=== PATIENT | female | born 1995 | race Caucasian/White ===

== ENCOUNTER 2023-05-13 14:34 | Outpatient (REF) | payer MEDICAID, SELFPAY ==
[2023-05-14 03:57] LABS: CT PCR NOT DETECTED (Not Detect.); NG PCR NOT DETECTED (Not Detect.)
== END 2023-05-13 14:35 | disposition home or self-care (01) ==
LOC: HO.CHCLDS 14:34
PROVIDERS: Visit Provider Advanced Practice Midwife
DX: Z11.3 Encounter for screening for infections with a predominantly sexual mode of transmission (principal)
CPT/HCPCS: 0353U

== ENCOUNTER 2023-08-18 13:26 | Outpatient (REF) | payer MEDICAID, SELFPAY ==
[2023-08-18 14:17] LABS: Hematocrit 38.2 % (37.0-47.0); Hemoglobin 13.1 g/dl (12.0-16.0); Mean Corpuscular HGB Conc 34.3 g/dl (31.0-35.0); Mean Corpuscular Hemoglobin 29.4 pg (27.0-33.0); Mean Corpuscular Volume 85.7 fL (80.0-98.0); Mean Platelet Volume 10.4 fL (9.4-12.3); Platelet Count 233 X10*3/uL (160-400); Red Blood Count 4.46 X10*6/uL (4.20-5.50); Red Cell Distribution Width 13.2 % (11.0-16.0); White Blood Count 5.7 X10*3/uL (4.8-10.8)
== END 2023-08-18 13:27 | disposition home or self-care (01) ==
LOC: HO.LAB 13:26
PROVIDERS: PCP Internal Medicine; Visit Provider Nurse Practitioner Family
DX: K21.9 Gastro-esophageal reflux disease without esophagitis (principal); K62.5 Hemorrhage of anus and rectum; Z80.0 Family history of malignant neoplasm of digestive organs
CPT/HCPCS: 36415; 85027; 99212

== ENCOUNTER 2023-08-18 13:26 | Outpatient (AMB) | payer MEDICAID, SELFPAY ==
--- NOTE | 2023-08-18 13:30 | A.OFFVIS_ITS ---
Intake Vital Signs 08/18/23 13:34 Height 5 ft 5 in Weight 134 lb 7.712 oz BMI 22.4 BP 105/60 Blood Pressure Location Lt brachial Position Sitting Pulse 65 Intake Visit Reasons: Colon cancer screening Intake Note: Patient presents to in office visit today as a new patient for colonoscopy screening. CC: Patient referred by her PCP for colonoscopy screening d/t strong family hx of colon cancer. She reports an episode of dark stool last year but other than that denies having any other GI symptoms or concerns. 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 On her father's side most of all her father's siblings have been diagnosed with colorectal cancer. Mostly when they were older. Her whenever her father was diagnosed with colorectal cancer sometimes between age 50 and 60. Patient reports she had a block stool sometimes last year. No blood seen in the stool. Recent blood work that was done by PCP was normal. Patient reports to have normal stools. Patient denies any unintentional weight loss. FORMERLY [facility], [facility]–1983 Surgical History H/O section Status post surgical removal of both fallopian tubes H/O umbilical hernia repair Family History Father Colon cancer Paternal Uncle Colon cancer Paternal Uncle Colon cancer Paternal Aunt Colon cancer Maternal Grandfather Stomach cancer Social History Alcohol intake: never Patient Tobacco Use Status: Never used Tobacco Review of Systems Const Denies weight gain and Denies weight loss ENT Reports no additional complaints, Denies dysphagia and Denies odynophagia Card Reports no additional complaints Resp Reports no additional complaints GI Denies abdominal pain, Denies belching, Denies melena, Denies bloating, Denies change in bowel habits, Denies dysphagia, Denies excessive flatus, Denies dyspepsia, Denies heartburn, Denies diarrhea, Denies loose stools, Denies nausea, Denies odynophagia and Denies vomiting Musc Reports no additional complaints Neuro Reports no additional complaints Psych Reports no additional complaints Endo Reports no additional complaints Physical Exam Vital Signs: Last Vital Signs Pulse 65 08/18/23 13:34 BP 105/60 08/18/23 13:34 BMI result Body Mass Index 22.4 Const General: healthy appearing, no acute distress and well developed Nutritional Appearance: well nourished Orientation/consciousness: patient oriented x3 Resp Effort & Inspection: normal respiratory effort, able to speak in complete sentences, no tracheal deviation and symmetric chest movement Auscultation: clear to auscultation bilaterally Cardio Rate: regular rate GI Inspection: Yes normal to inspection and No distended Palpation (GI): Soft to palpation, not firm, nontender and No hepatosplenomegaly present Auscultation: normal bowel sounds General: Yes no CVA tenderness Back/Spine/Pelvis Back: no CVA tenderness Skin General skin exam: elasticity normal, turgor normal and dry skin Neuro General: patient oriented x3 Psych Appearance: grossly normal Mental Status: mental status grossly normal Assessment & Plan Assessment & Plan (1) Family history of colorectal cancer: Code(s): Z80.0 - Family history of malignant neoplasm of digestive organs (2) Rectal bleed: Code(s): K62.5 - Hemorrhage of anus and rectum Plan Will check patient's blood work. Patient reports that she had black stool about last year. Couple episodes of blood after bowel movement. Patient denies any rectal pain. Denies any weight loss or ribbon like stools. Patient however does have strong family history of colorectal cancer. Will check stool for Hemoccult. Patient can stool softener if she becomes constipated. Patient was also encouraged to increase fluid intake and activity to promote better bowel motility. She will return in this office in 3 months, sooner on as needed basis. Patient is agreeable to this plan and verbalizes understanding of instructions. She was given the opportunity to ask questions and all questions answered. Thank you for allowing me to participate in her care Orders: Orders Complete Blood Count no Diff Today K21.9 - Gastro-esophageal reflux disease without esophagitis AMB Fecal Immunochemical Test Today Z12.11 - Encounter for screening for malignant neoplasm of colon Coding Level of Care Code New Pt Level 3 (35814) Diagnoses Family history of colorectal cancer Z80.0 Rectal bleed K62.5 Time Spent (min) 40 Comment 30 minutes spent with patient and additional 10 minutes spent reviewing her records
[2023-08-18 13:34] VITALS: BP 105/60; PULSE 65; BMI 22.4
== END 2023-08-18 14:14 | disposition home or self-care (01) ==
PROVIDERS: PCP Internal Medicine; Visit Provider Nurse Practitioner Family
DX: K62.5 Hemorrhage of anus and rectum (principal); Z80.0 Family history of malignant neoplasm of digestive organs
CPT/HCPCS: 99203

== ENCOUNTER 2023-11-17 13:02 | Outpatient (AMB) | payer MEDICAID, SELFPAY ==
--- NOTE | 2023-11-17 13:05 | MHC.OFFVIS ---
Vital Signs 11/17/23 13:06 Height 5 ft 5 in Weight 141 lb 1.533 oz BMI 23.5 BP 120/61 Blood Pressure Location Rt brachial Position Sitting Pulse 80 Pulse Source Pulse Oximeter Intake Visit Reasons: 3 month follow up Intake Note: Pt presents to the office today for a 3 month follow up. Pt states she is feeling well and denies any GI concerns at this time. Allergies No Known Allergies Allergy (Verified 11/17/23 13:07) HPI HPI 3 month follow up: Details: LAST VISIT Family history of colorectal cancer Rectal bleed Plan Will check patient's blood work. Patient reports that she had black stool about last year. Couple episodes of blood after bowel movement. Patient denies any rectal pain. Denies any weight loss or ribbon like stools. Patient however does have strong family history of colorectal cancer. Will check stool for Hemoccult. Patient can stool softener if she becomes constipated. Patient was also encouraged to increase fluid intake and activity to promote better bowel motility. She will return in this office in 3 months, sooner on as needed basis. Patient is agreeable to this plan and verbalizes understanding of instructions. She was given the opportunity to ask questions and all questions answered. ? Thank you for allowing me to participate in her care Orders Orders Complete Blood Count no Diff Today K21.9 AMB Fecal Immunochemical Test Today Z12.11 TODAY'S VISIT Patient is here today for follow-up. Patient had couple episodes of rectal bleed. Occasional constipation. Family history of CRC, patient's that of CRC in his late 50s. Patient denies any melena, unintentional weight loss or ribbon like stools. Denies any issues with anesthesia in the past. No history of sleep apnea. Not on any anticoagulation medication. Denies any cardiac or respiratory symptoms [facility] Surgical History H/O section Status post surgical removal of both fallopian tubes H/O umbilical hernia repair Family History Father Colon cancer Paternal Uncle Colon cancer Paternal Uncle Colon cancer Paternal Aunt Colon cancer Maternal Grandfather Stomach cancer Social History Alcohol intake: never Patient Tobacco Use Status: Never used Tobacco Review of Systems Const Denies weight gain and Denies weight loss ENT Reports no additional complaints, Denies dysphagia and Denies odynophagia Card Reports no additional complaints Resp Reports no additional complaints GI Denies abdominal pain, Denies belching, Denies melena, Denies bloating, Reports hematochezia, Denies change in bowel habits, Denies dysphagia, Denies excessive flatus, Denies dyspepsia, Denies heartburn, Denies diarrhea, Denies loose stools, Denies nausea, Denies odynophagia and Denies vomiting Reports no additional complaints Musc Reports no additional complaints Neuro Reports no additional complaints Psych Reports no additional complaints Endo Reports no additional complaints Physical Exam Vital Signs: Last Vital Signs Pulse 80 11/17/23 13:06 BP 120/61 11/17/23 13:06 BMI result Body Mass Index 23.5 Const General: healthy appearing, no acute distress and well developed Nutritional Appearance: well nourished Orientation/consciousness: patient oriented x3 Resp Effort & Inspection: normal respiratory effort, able to speak in complete sentences, no tracheal deviation and symmetric chest movement Auscultation: clear to auscultation bilaterally Cardio Rate: regular rate GI Inspection: Yes normal to inspection and No distended Palpation (GI): Soft to palpation, not firm, nontender and No hepatosplenomegaly present Auscultation: normal bowel sounds General: Yes no CVA tenderness Back/Spine/Pelvis Back: no CVA tenderness Skin General skin exam: elasticity normal, turgor normal and dry skin Neuro General: patient oriented x3 Psych Appearance: grossly normal Mental Status: mental status grossly normal Assessment & Plan Assessment & Plan (1) Family history of colorectal cancer: Code(s): Z80.0 - Family history of malignant neoplasm of digestive organs (2) Rectal bleed: Code(s): K62.5 - Hemorrhage of anus and rectum (3) Constipation: Code(s): K59.00 - Constipation, unspecified Qualifiers: Constipation type: slow transit constipation Qualified Code(s): K59.01 - Slow transit constipation Plan What to expect before during and after procedure discussed with patient. Stressed the importance of good bowel prep and clear liquid diet day before procedure. Patient denies any issues with anesthesia in the past. No history of sleep apnea. Not on any anticoagulation medication. I will see patient after the procedure, sooner on as needed basis. Patient is agreeable to this plan and verbalizes understanding of instructions. She was given the opportunity to ask questions and all questions answered. Thank you for allowing me to participate in her care Medications: New bisacodyl (Dulcolax (bisacodyl)) take 4 tabs at noon the day before your colonoscopy 20 mg (4 x 5 mg) PO ONCE 1 day 4 tabs 0RF Z12.11 - Encounter for screening for malignant neoplasm of colon polyethylene glycol 3350 (Miralax) As directed by gastroenterology department at [facility] 238 grams PO ONCE 238 grams 0RF Z12.11 - Encounter for screening for malignant neoplasm of colon bisacodyl (Dulcolax (bisacodyl)) 10 mg (2 x 5 mg) PO BEDTIME 60 tabs 4RF
[2023-11-17 13:06] VITALS: BP 120/61; PULSE 80; BMI 23.5
== END 2023-11-17 13:41 | disposition home or self-care (01) ==
LOC: HO.HGI 13:02
PROVIDERS: PCP Internal Medicine; Visit Provider Nurse Practitioner Family
DX: Z80.0 Family history of malignant neoplasm of digestive organs (principal); K62.5 Hemorrhage of anus and rectum; K59.01 Slow transit constipation
CPT/HCPCS: 99213

== ENCOUNTER → 2023-11-17 13:02 | Outpatient (BNVA) | payer MEDICAID, SELFPAY | PROVIDERS: PCP Internal Medicine; Visit Provider Nurse Practitioner Family | DX: K62.5 Hemorrhage of anus and rectum (principal); K59.00 Constipation, unspecified; Z80.0 Family history of malignant neoplasm of digestive organs | CPT/HCPCS: 99212 ==

== ENCOUNTER 2023-12-15 09:21 | Day surgery (SDC) | payer MEDICAID, SELFPAY ==
--- NOTE | 2023-12-12 12:46 | HO.ANESPROP2 ---
Documented by User: Nathaly Sol NP 12/12/23 12:47 HPI - Anesthesia Eval Consult details Narrative: 28yo F for Colonoscopy PMFSH Family History Family History Father Colon cancer Paternal Uncle Colon cancer Paternal Uncle Colon cancer Paternal Aunt Colon cancer Maternal Grandfather Stomach cancer Surgical History Surgical History H/O section Status post surgical removal of both fallopian tubes H/O umbilical hernia repair Social History Social History Alcohol intake: never Patient Tobacco Use Status: Never used Tobacco Substance Use Frequency: Chronic Longstanding Are you DNR?: No Advance Directives: No Advance Directives Information Provided: Yes Patient : No Meds Allergies Allergy/AdvReac Type Severity Reaction Status Date / Time No Known Allergies Allergy Verified 11/17/23 13:07 Home Medications ?Medication ?Instructions ?Recorded ?Confirmed ?Last Taken ?Type mirtazapine 15 mg tablet 15 mg PO BEDTIME 08/18/23 Unknown History Assessment and Plan Assessment Anesthesia Assessment: Chart Reviewed Documented by User: Marco Dennis MD 12/15/23 10:50 PMFSH Family History Family History Father Colon cancer Paternal Uncle Colon cancer Paternal Uncle Colon cancer Paternal Aunt Colon cancer Maternal Grandfather Stomach cancer Family history of problems with anesthesia: No Surgical History Surgical History H/O section Status post surgical removal of both fallopian tubes H/O umbilical hernia repair History of Problems with Anesthesia: No Social History Social History Alcohol intake: never Patient Tobacco Use Status: Never used Tobacco Substance Use Frequency: Chronic Longstanding Are you DNR?: No Advance Directives: No Advance Directives Information Provided: Yes Patient : No Meds Allergies Allergy/AdvReac Type Severity Reaction Status Date / Time No Known Allergies Allergy Verified 11/17/23 13:07 Home Medications ?Medication ?Instructions ?Recorded ?Confirmed ?Last Taken ?Type mirtazapine 15 mg tablet 15 mg PO BEDTIME 08/18/23 Unknown History Exam Airway Mallampati Class: I TM Dist: >3cm Neck ROM: Full Loose/Missing/Broken Teeth: No Heart: rrr Lungs: cta Assessment and Plan Final Anesthetic Review Family History of Problems with Anesthesia: No History of Problems with Anesthesia: No NPO: Yes ASA Class: II Final Preanesthetic Review: No Changes in Pt Med Stat, Meds/Allgs Chart Reviewed, Consent Obtained/Reviewed and Anes Risks/Benef Reviewed Patient Risk: Intermediate Procedure Risk: Intermediate Anesthetic Plan Anesthetic Plan: GA Disposition: Standard PACU
[2023-12-15 10:01] VITALS: BP 118/63; PULSE 78; RESP 19; TEMP 36.8; O2SAT 98; BMI 23.8
[2023-12-15] MEDS: Lactated Ringers 1,000 ML 100 ML IVCONT (10:13)
--- NOTE | 2023-12-15 10:18 | MHC.SHP ---
Pre-Procedural Eval Section A - 24 Hr Update-Section A only Date of Service: 12/15/23 Section B - Complete if H&P > 30 days Chief Complaint: rectal bleed, Details of Present Illness: father with crc Relevant Family History (Specify if Yes): Yes Relevant Social History: None Present Medications: see Short Stay Collaborative assessment Medical History: Significant History (depression ) History of Previous Operations: Relevant previous surgery/procedure and date(s) ( H/O section Status post surgical removal of both fallopian tubes H/O umbilical hernia repair) Allergies: Allergies Allergy/AdvReac Type Severity Reaction Status Date / Time No Known Allergies Allergy Verified 11/17/23 13:07 Review of Systems Sugical H&P ROS: Negative: Constitution, Cardiovascular, Respiratory, Neurological, Psychiatric, Hem-Onc, Allergic/Immunologic, Gastrointestinal, Genitourinary, Musculoskeletal, Integumentary, Endocrine and Eyes/Ears/Nose/Throat Exam Surgical H&P Exam: Normal: HEENT, Normal: Heart, Normal: Lungs, Normal: Extremities, Normal: Abdomen, Normal: Skin and Normal: Neurological Plan Diagnosis/Plan: Unchanged I have reviewed the history and physical and performed a pertinent physical examination on my patient. No changes have occurred unless specified. colonoscopy for rectal bleeding and FH of CRC Time Spent With Patient Time: Total time managing care of this patient today ____ minutes.
--- NOTE | 2023-12-15 10:42 | HO.OPN-COLON ---
Colonoscopy Operative Note Operative Note Date of Service: 12/15/23 Narrative: Operative Information Procedure Description: Colonoscopy Indication: rectal bleeding Anesthesia: MAC COLONOSCOPY Instrument: Olympus variable stiffness pediatric scope 190L Colonoscopy Monitoring: Vital signs and clinical assessment, continuous EKG monitoring, Pulse oximetry, Carbon Dioxide monitoring and blood pressure monitoring were done throughout the procedure. Colon withdrawal time was 8 minutes. Procedure: The patient was placed in the left lateral decubitis position and pre-procedure medications were administered. After a digital rectal examination of the ano-rectum, the video colonoscope was inserted into the rectum and advanced through the colon to the cecum/TI. The colonoscope was slowly withdrawn in a retrograde panoramic fashion and the colon mucosa was carefully examined including a retroflexed view of the rectum. Findings and interventions are described below. Procedure Difficulty: easy Findings: Terminal Ileum-normal Cecum:normal right sided retroflexion- normal Ascending Colon: normal Transverse Colon -normal Descending Colon: 5-6mm sessile polyp removed with cold forceps Sigmoid Colon: normal Rectum: Retroflexion with small internal hemorrhoids seen, grade I Anorectum - normal Intervention: cold forceps polypectomy Colon preparation: [place] Bowel Preparation Scale Right colon; 2 Transverse colon: 3 Left colon; 3 (0 = Unprepared colon segment with mucosa not seen due to solid stool that cannot be cleared. 1 = Portion of mucosa of the colon segment seen, but other areas of the colon segment not well seen due to staining, residual stool and/or opaque liquid. 2 = Minor amount of residual staining, small fragments of stool and/or opaque liquid, but mucosa of colon segment seen well. 3 = Entire mucosa of colon segment seen well with no residual staining, small fragments of stool or opaque liquid) Impression and Post Procedure Diagnosis: colon polyp internal hemorrhoids Plan: High fiber diet leaflet Avoid straining at stool, epsom salts and sitz bath, anusol supps or cream Repeat Colonoscopy in 5 years due to polyp and FH of CRC or earlier if clinically indicated Above findings were reviewed with the patient and relevant handouts were provided if indicated.
[2023-12-15 11:13] VITALS: BP 92/47; PULSE 61; RESP 17; TEMP 36.2; O2SAT 99
[2023-12-15 11:28] VITALS: BP 114/68; PULSE 65; RESP 16; TEMP 36.1; O2SAT 99
== END 2023-12-15 13:15 | disposition home or self-care (01) ==
PROVIDERS: PCP Internal Medicine; Visit Provider Internal Medicine Gastroenterology
PROC: 0DJD8ZZ Inspection of Lower Intestinal Tract, Via Natural or Artificial Opening Endoscopic (ICD-10-PCS; CPT 45378; principal; 2023-12-15 11:30)
DX: K62.5 Hemorrhage of anus and rectum (principal); K59.01 Slow transit constipation; D12.4 Benign neoplasm of descending colon; K64.0 First degree hemorrhoids; Z80.0 Family history of malignant neoplasm of digestive organs
CPT/HCPCS: 45380; 88305; J2250; J2704; J3010

== ENCOUNTER → 2023-12-15 09:21 | Outpatient (BNV) | payer MEDICAID, SELFPAY | PROVIDERS: PCP Internal Medicine; Visit Provider Internal Medicine Gastroenterology | DX: K62.5 Hemorrhage of anus and rectum (principal); D12.4 Benign neoplasm of descending colon; K64.0 First degree hemorrhoids | CPT/HCPCS: 45380 ==

== ENCOUNTER 2024-04-05 10:43 | Outpatient (REF) | payer MEDICAID, SELFPAY ==
[2024-04-05 11:29] LABS: MANUAL DIFF FLAG NO
[2024-04-05 11:47] LABS: Basophils Percent Auto 0.3 % (0-2); Eosinophils Absolute Auto 0.1 X10*3/uL (0.0-0.4); Eosinophils Percent Auto 0.8 % (0-4); Hematocrit 38.1 % (37.0-47.0); Hemoglobin 13.1 g/dl (12.0-16.0); Imm Gran Abs Auto 0.01 X10*3/uL (0.00-0.03); Imm Gran Pct Auto 0.2 % (0.0-0.4); Lymphocytes Absolute Auto 1.1 X10*3/uL (1.2-4.9); Lymphocytes Percent Auto 18.8 % (20-40); Mean Corpuscular HGB Conc 34.4 g/dl (31.0-35.0); Mean Corpuscular Hemoglobin 28.9 pg (27.0-33.0); Mean Corpuscular Volume 84.1 fL (80.0-98.0); Mean Platelet Volume 10.3 fL (9.4-12.3); Monocytes Absolute Auto 0.4 X10*3/uL (0.1-1.2); Monocytes Percent Auto 6.3 % (2-11); Neutrophils Absolute Auto 4.4 x10*3/uL (2.0-8.3); Neutrophils Percent Auto 73.6 % (45-73); Platelet Count 285 X10*3/uL (160-400); Red Blood Count 4.53 X10*6/uL (4.20-5.50); Red Cell Distribution Width 12.9 % (11.0-16.0); White Blood Count 5.9 X10*3/uL (4.8-10.8)
[2024-04-05 12:49] LABS: Alanine Aminotransferase 9 U/L (0-31); Albumin Level 4.2 g/dL (3.5-5.0); Alkaline Phosphatase 58 U/L (39-117); Anion Gap 11 (12-20); Aspartate Amino Transferase 14 U/L (5-31); Bilirubin Total 0.4 mg/dL (0.0-1.0); Blood Urea Nitrogen 16 mg/dL (9-16); Calcium 9.2 mg/dL (8.4-10.2); Carbon Dioxide 22 mmol/L (22-29); Chloride 112 mmol/L (96-108); Estimated Glomerular Filt Rate > 60; Ferritin 53 ng/mL (10-122); Glucose Random 87 mg/dL (60-115); Potassium 3.8 mmol/L (3.3-5.1); Sodium 141 mmol/L (135-145); TSH reflex Free T4 1.28 uIU/mL (0.32-4.0); Total Protein 7.7 g/dL (6.5-8.0); Vitamin D 25-OH Total 35.3 ng/mL (>30)
[2024-04-05 12:52] LABS: Folate 6.4 ng/mL (> or = 4.0); Vitamin B12 363 pg/mL (200-900)
== END 2024-04-05 10:44 | disposition home or self-care (01) ==
LOC: HO.HHCL 10:43
PROVIDERS: Visit Provider Internal Medicine
DX: F33.0 Major depressive disorder, recurrent, mild (principal); F31.4 Bipolar disorder, current episode depressed, severe, without psychotic features
CPT/HCPCS: 36415; 80053; 82306; 82607; 82728; 82746; 84443; 85025

== ENCOUNTER 2024-04-20 12:32 | Outpatient (REF) | payer MEDICAID, SELFPAY ==
--- NOTE | ~2024-04-20 | XR_ITS ---
EXAMINATION: XR ANKLE, RIGHT CLINICAL INFORMATION: Right ankle sprain, trauma 4 days ago. COMPARISON: None available. TECHNIQUE: AP, lateral, and mortise views of the right ankle. FINDINGS: Soft tissue swelling at the ankle. No fracture or malalignment. Bone mineralization is normal. Ankle mortise is symmetric. Normal bone mineralization. Joint spaces appear well-preserved. XR/XR ankle RT min 3V IMPRESSION: Soft tissue swelling at the ankle. No acute fracture or malalignment. Electronically signed by: Manjit Anglin MD 04/20/2024 01:45 PM EDT
== END 2024-04-20 12:33 | disposition home or self-care (01) ==
LOC: HO.HHCX 12:32
PROVIDERS: Visit Provider Internal Medicine
DX: S93.431A Sprain of tibiofibular ligament of right ankle, initial encounter (principal)
CPT/HCPCS: 73610

== ENCOUNTER 2024-05-18 17:59 | Outpatient (REF) | payer MEDICAID, SELFPAY ==
[2024-05-19 13:54] LABS: Bacterial Vaginosis PCR POSITIVE (Negative); Candida Group PCR NOT DETECTED (Not Detect); Candida glab krusei PCR NOT DETECTED (Not Detect); Trichomonas vaginalis PCR NOT DETECTED (Not Detect)
== END 2024-05-18 18:00 | disposition home or self-care (01) ==
LOC: HO.HHCLNP 17:59
PROVIDERS: Visit Provider Advanced Practice Midwife
DX: N89.8 Other specified noninflammatory disorders of vagina (principal)
CPT/HCPCS: 0352U

== ENCOUNTER 2025-05-25 09:07 | Outpatient (REF) | payer MEDICAID, SELFPAY ==
--- OUTSIDE RECORDS SUMMARY | 2025-05-25 14:30 | XMS_ITS | Encounter Summary ---
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 Role Phone Linda Carmichael MD Primary Care Provider + Reason for Visit * Reason Comments pap Encounter Details Date Type Department Care Team (Latest Contact Info) Description 05/25/2025 2:30 PM EDT Procedure Visit [facility] [address] [place] [id number] Maggie Crow CNM [address] [place] [address] Cervical cancer screening (Primary Dx); Dysmenorrhea Social History Tobacco Use Types Packs/Day Years Used Date Smoking Tobacco: Former Passive Smoke Exposure: Past Smokeless Tobacco: Never Tobacco Cessation:Counseling Given: Not Answered Alcohol Use Standard Drinks/Week Comments Never 0 (1 standard drink = 0.6 oz pur e alcohol) Depression Answer Date Recorded Patient Health Questionnaire-9 Score 15 03/07/2025 Patient Health Questionnaire-9 Score 15 03/07/2025 Last PHQ-9: Questionnaire Data Not on file 0 03/07/2025 Housing Stability Answer Date Recorded What is your housing situation today? I have dalton martinez 02/23/[address] you li ve. Do you have problems with any of the following? None of the above 02/23/2025 Food Insecurity Answer Date Recorded Within the past 12 months, y ou worried that your food would run out before you got money to buy more: Never True 02/23/2025 Within the past 12 months,th e food you bought just didn't last and you didn't have enough money to get more: Never True Transportation Answer Date Recorded In the past 12 months, has l ack of transportation kept you from medical appts, meetings, work or from getting things needed for daily living? No 02/23/2025 Utilities Answer Date Recorded In the past 12 months, has t he electric, gas, oil or water company threatened to shut off services in your home? No 02/23/2025 Depression Answer Date Recorded Patient Health Questionnaire-2 Score 4 03/07/2025 Internet Access Answer Date Recorded Internet Access Q1 Yes 02/23/2025 Internet Access Q2 Not on file 02/23/2025 Comments No Intention Date Recorded No desire to become (finding) 1 Sex and Gender Information Value Date Recorded Sex Assigned at Female 05/27/2022 10:34 AM EDT Legal Sex Female 10:34 AM EDT Gender Identity Female 05/27/2022 10:34 AM EDT Sexual Orientation Straight 05/27/2022 10 :34 AM EDT documented as of this encounter Last Filed Vital Signs Vital Sign Reading Time Taken Comments Blood Pressure 110/54 05/25/2025 2:53 PM EDT Pulse 75 05/25/2025 2:53 PM EDT Temperature 36.3 C (97.4 F) 05/25/2025 2:53 PM EDT Respiratory Rate 14 05/25/2025 2:53 PM EDT Oxygen Saturation 98% 05/25/2025 2:53 PM EDT Inhaled Oxygen Concentration - - Weight 65 kg (143 lb 3.2 oz) 05/25/2025 2:53 PM EDT Height - - Body Mass Index 23.65 03/07/2025 12:05 PM EDT documented in this encounter Progress Notes * Maggie Crow CNM - 05/25/2025 2:30 PM EDT Subjective Patient ID: Ramses Juarez is a 29 y.o. female who presents for pap Pap NIL 04/2022. Due for co-testing. Rx'd progestin only pill previously for treatment of dysmenorrhea, pelvic congestion syndrome. She has been taking as directed and notes improvement in menses. Would like to continue. Monthly menses x 4-5d, no heavy flow or bothersome cramping. Referred for pelvic floor PT to [facility] after last visit. She was seen there, advised to do Kegels. Feels this has been somewhat helpful. Denies sexual health concerns today. History of ectopic after tubal ligation with subsequent bilateral salpingectomy. Breast exam deferred today. Review of Systems Genitourinary: Negative for dyspareunia, dysuria, frequency, genital sores, hematuria, menstrual problem, pelvic pain, urgency, vaginal bleeding, vaginal discharge and vaginal pain. No abnormal pap, no abnormal bleeding, no breast pain, no breast mass, no nipple discharge Objective BP 110/54 (BP Location: Left arm, Patient Position: Sitting, BP Cuff Size: Child) Pulse 75 Temp97.4 ??F (36.3 ??C) (Oral) Resp 14 Wt 143 lb 3.2 oz (65 kg) LMP 05/25/2025 SpO2 98% BMI 23.65 kg/m?? 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 Constitutional: Appearance: Normal appearance. Genitourinary: General: Normal vulva. Labia: Right: No rash, tenderness, lesion or injury. Left: No rash, tenderness, lesion or injury. Vagina: Normal. No signs of injury and foreign body. No vaginal discharge, erythema, tenderness, bleeding or lesions. Cervix: No cervical motion tenderness, discharge, friability, lesion, erythema, cervical bleeding or eversion. Uterus: Normal. Not enlarged and not tender. Adnexa: Right adnexa normal and left adnexa normal. Right: No mass, tenderness or fullness. Left: No mass, tenderness or fullness. Comments: Good tone with Kegels, no prolapse with Valsalva. No tenderness of adductors, no vulvodynia, no tenderness of pelvic floor muscles. Able to do diaphragmatic breathing. Neurological: Mental Status: She is alert. Psychiatric: Mood and Affect: Mood normal. Behavior: Behavior normal. Assessment/Plan Diagnoses and all orders for this visit: Cervical cancer screening - Pap Smear Cotest 5 y if normal. Will contact with results. Reviewed Kegels. As they seem to be helpful, advised to continue. Let me know if further concerns. Dysmenorrhea Well controlled on progestin only pill. Will continue for now. Report if symptoms recur. Other orders - norethindrone (Ortho Micronor) 0.35 MG tablet; Take 1 tablet (0.35 mg) by mouth Once per day. documented in this encounter Plan of Treatment Scheduled Orders Name Type Priority Associated Diagnoses Orde r Schedule Pap Smear Pathology and Cytology Routine Cervical cancer screening Ordered: 05/25/2025 documented as of this encounter Visit Diagnoses Diagnosis Cervical cancer screening- Primary Screening for malignant neoplasm of the cervix Dysmenorrhea documented in this encounter Additional Health Concerns Assessment Noted Time PHQ-9 Depression Total Score: 15 025 12:11 PM EDT documented as of this encounter Care Teams Farmworker Machine Relationship Specialty Start Date End Date Linda Carmichael MD [address] [place] [address] PCP - General Family Medicine 07/07/18 documented as of this encounter
--- OUTSIDE RECORDS SUMMARY | 2025-05-26 10:16 | XMS_ITS | Encounter Summary ---
Author Organization [email or web address] Address [address] [facility] [address] [place] [address] Care Team Providers Care Regulatory Specialist Name Role Phone Linda Carmichael MD Primary Care Provider + Reason for Visit * Reason Onset Date Comments Med Refill 03/09/2025 Encounter Details Date Type Department Care Team (Late st Contact Info) Description 03/09/2025 Refill [facility] [address] [place] [address] Maggie Crow CN [address] [place] [address] Social History Tobacco Use Types Packs/Day Years Used Date Smoking Tobacco: Former Passive Smoke Exposure: Past Smokeless Tobacco: Never Alcohol Use Standard Drinks/Week Comments Never 0 (1 standard drink = 0.6 oz pur e alcohol) Depression Answer Date Recorded Patient Health Questionnaire-9 Score 15 03/07/2025 Patient Health Questionnaire-9 Score 15 03/07/2025 Last PHQ-9: Questionnaire Data Not on file 0 03/07/2025 Housing Stability Answer Date Recorded What is your housing situation today? I have dalton michelle 02/23/[address] you li [...] Q2 Not on file 02/23/2025 Comments No Sex and Gender Information Value Date Recorded Sex Assigned at Female 05/27/2022 10:34 AM EDT Legal Sex Female 10:34 AM EDT Gender Identity Female 05/27/2022 10:34 AM EDT Sexual Orientation Straight 05/27/2022 10 :34 AM EDT documented as of this encounter Plan of Treatment Not on file documented as of this encounter Visit Diagnoses Not on filedocumented in this encounter Additional Health Concerns Assessment Noted Time PHQ-9 Depression Total Score: 15 025 12:11 PM EDT documented as of this encounter Care Teams Regulatory Specialist Relationship Specialty Start Date End Date Linda Carmichael MD [address] [place] [phone] PCP - General Family Medicine 07/07/18 documented as of this encounter
--- OUTSIDE RECORDS SUMMARY | 2025-05-26 10:16 | XMS_ITS | Encounter Summary ---
Author Organization [employer] Address [address] [facility] [facility] [address] [facility] [address] [place] [address] Care Team Providers Care Hand Splitter Name Role Phone Linda Carmichael MD Primary Care Provider + Encounter Details Date Type Department Care Team ([facility] st Contact Info) Description 04/28/2023 Orders Only [facility] [address] [place] [address] Nikky Bran LPN Social History Tobacco Use Types Packs/Day Years Used Date Smoking Tobacco: Every Day Cigarettes Passive Smoke Exposure: Current Smokeless Tobacco: Never Comments Unknown Sex and Gender Information Value Date Recorded Sex Assigned at Female 05/27/2022 10:34 AM EDT Legal Sex Female 10:34 AM EDT Gender Identity Female 05/27/2022 10:34 AM EDT Sexual Orientation Straight 05/27/2022 10 :34 AM EDT documented as of this encounter Plan of Treatment Not on file documented as of this encounter Visit Diagnoses Not on filedocumented in this encounter Care Teams Hand Splitter Relationship Specialty Start Date End Date Linda Carmichael MD [address] [place] [phone] PCP - General Family Medicine 07/07/18 documented as of this encounter
--- OUTSIDE RECORDS SUMMARY | 2025-05-26 10:16 | XMS_ITS | Encounter Summary ---
Author Organization [employer] Address [address] [facility] [address] [place] [address] Care Team Providers Care Property Technician Name Role Phone Linda Carmichael MD Primary Care Provider + Reason for Visit * Reason Comments Med Refill Encounter Details Date Type Department Care Team (Late st Contact Info) Description 09/07/2024 Refill [facility] [address] [place], [place] [phone] Linda Carmichael MD [address] [place], [place] [phone] Social History Tobacco Use Types Packs/Day Years Used Date Smoking Tobacco: Former Passive Smoke Exposure: Current Smokeless Tobacco: Never Alcohol Use Standard Drinks/Week Comments Never 0 (1 standard drink = 0.6 oz pur e alcohol) Depression Answer Date Recorded Patient Health Questionnaire-9 Score 24 02/26/2024 Patient Health Questionnaire-9 Score 24 02/26/2024 Last PHQ-9: Questionnaire Data Not on file 0 02/26/2024 Housing Stability Answer Date Recorded What is your housing situation today? I have dalton martinez 07/09/[address] you li ve. Do you have problems with any of the following? None of the above 07/09/2023 Food Insecurity Answer Date Recorded Within the past 12 months, y ou worried that your food would run out before you got money to buy more: Never True 07/09/2023 Within the past 12 months,th e food you bought just didn't last and you didn't have enough money to get more: Never True Transportation Answer Date Recorded In the past 12 months, has l ack of transportation kept you from medical appts, meetings, work or from getting things needed for daily living? No 07/09/2023 Utilities Answer Date Recorded In the past 12 months, has t he electric, gas, oil or water company threatened to shut off services in your home? No 07/09/2023 Depression Answer Date Recorded Patient Health Questionnaire-2 Score 6 02/26/2024 Comments No Sex and Gender Information Value [...] Assessment Noted Time PHQ-9 Depression Total Score: 24 024 1:39 PM EDT documented as of this encounter Care Teams Property Technician Relationship Specialty Start Date End Date Linda Carmichael MD [address] [place] [phone] PCP - General Family Medicine 07/07/18 documented as of this encounter
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
--- OUTSIDE RECORDS SUMMARY | 2025-05-26 10:16 | XMS_ITS | Encounter Summary ---
Author Organization [email or web address] Address [address] [facility] 7t [place] [address] Care Team Providers Care Grain Elevator Operator Name Role Phone Linda Carmichael MD Primary Care Provider + Reason for Visit * Reason Onset Date Comments Med Refill 05/10/2024 Encounter Details Date Type Department Care Team (Late st Contact Info) Description 05/10/2024 Refill [facility] [address] [place], [place] [phone] Linda Carmichael MD [address] [place], [place] [phone] Social History Tobacco Use Types Packs/Day Years Used Date Smoking Tobacco: Former Cigarettes Passive Smoke Exposure: Current Smokeless Tobacco: [...] documented as of this encounter Care Teams Grain Elevator Operator Relationship Specialty Start Date End Date Linda Carmichael MD [address] [place] [phone] PCP - General Family Medicine 07/07/18 documented as of this encounter
--- OUTSIDE RECORDS SUMMARY | 2025-05-26 10:16 | XMS_ITS | Encounter Summary ---
Author Organization [employer] Address [address] [facility] [address] [place] [address] Care Team Providers Care Grants Manager Name Role Phone Linda Carmichael MD Primary Care Provider + Encounter Details Date Type Department Care Team ([facility] st Contact Info) Description 04/28/2023 Orders Only [facility] [address] [place] [address] Eneida Puckett LPN Social History Tobacco Use Types Packs/Day [...] on filedocumented in this encounter Care Teams Grants Manager Relationship Specialty Start Date End Date Linda Carmichael MD [address] [place] [phone] PCP - General Family Medicine 07/07/18 documented as of this encounter
--- OUTSIDE RECORDS SUMMARY | 2025-05-26 10:16 | XMS_ITS | Encounter Summary ---
Author Organization [employer] Address [address] [facility] 7t [place] [address] Care Team Providers Care Otr Company Driver Name Role Phone Linda Carmichael MD Primary Care Provider + Reason for Visit * Reason Comments Med Refill Encounter Details Date Type Department Care Team (Late st Contact Info) Description 01/06/2023 Refill [facility]ED[facility] [address] [place], [place] [phone] Celina Andrew MD [address] [place] [phone] Social History Tobacco Use Types Packs/Day Years Used Date Smoking Tobacco: Every Day Cigarettes Passive Smoke Exposure: Current Smokeless Tobacco: Never Comments Unknown Sex and Gender Information Value Date Recorded Sex Assigned at Female 05/27/2022 10:34 AM EDT Legal Sex Female 10:34 AM EDT Gender Identity Female 05/27/2022 10:34 AM EDT Sexual Orientation Straight 05/27/2022 10 :34 AM EDT COVID-19 Exposure Response Date Recorded In the last 10 days, have yo u been in contact with someone who was confirmed or suspected to have Coronavirus/COVID-19? No / Unsure 01/05/2023 11:47 AM EDT documented as of this encounter Plan of Treatment Not on file documented as of this encounter Visit Diagnoses Not on filedocumented in this encounter Care Teams Otr Company Driver Relationship Specialty Start Date End Date Linda Carmichael MD [address] [place] [phone] PCP - General Family Medicine 07/07/18 documented as of this encounter
--- OUTSIDE RECORDS SUMMARY | 2025-05-26 10:16 | XMS_ITS | Encounter Summary ---
Author Organization [employer] Address [address] [facility] [address] [place] [address] Care Team Providers Care Hydraulic Rockbreaker Operator Name Role Phone Linda Carmichael MD Primary Care Provider + Encounter Details Date Type Department Care Team (Latest Contact Info) Description 05/25/2025 Travel Social History Tobacco Use Types Packs/Day Years [...] documented as of this encounter Care Teams Hydraulic Rockbreaker Operator Relationship Specialty Start Date End Date Linda Carmichael MD [address] [place] [phone] PCP - General Family Medicine 07/07/18 documented as of this encounter
--- OUTSIDE RECORDS SUMMARY | 2025-05-26 10:16 | XMS_ITS | Encounter Summary ---
Author Organization [employer] Address [address] [facility] 7t [place] [address] Care Team Providers Care Deadener Name Role Phone Linda Carmichael MD Primary Care Provider + Reason for Visit * Reason Comments Med Refill Encounter Details Date Type Department Care Team (Late st Contact Info) Description 03/21/2023 Refill [facility] PEDS [address] [place] [address] Celina Andrew MD [address] [place] [address] Social History Tobacco Use Types Packs/Day Years [...] on filedocumented in this encounter Care Teams Deadener Relationship Specialty Start Date End Date Linda Carmichael MD [address] [place] [phone] PCP - General Family Medicine 07/07/18 documented as of this encounter
--- OUTSIDE RECORDS SUMMARY | 2025-05-26 10:16 | XMS_ITS | Encounter Summary ---
Author Organization [employer] Address [address] [facility] [address] [place] [address] Care Team Providers Care Signal Operator Name Role Phone Linda Carmichael MD Primary Care Provider + Reason for Visit * Reason Comments Med Refill Encounter Details Date Type Department Care Team (Late st Contact Info) Description 04/27/2023 Refill [facility] [address] [place] [address] Celina Andrew MD [address] [place] [address] Social History Tobacco Use Types Packs/Day Years [...] on filedocumented in this encounter Care Teams Signal Operator Relationship Specialty Start Date End Date Linda Carmichael MD [address] [place] [id number] PCP - General Family Medicine 07/07/18 documented as of this encounter
--- OUTSIDE RECORDS SUMMARY | 2025-05-26 10:16 | XMS_ITS | Encounter Summary ---
Author Organization [employer] Address [address] [facility] [address] [place] [address] Care Team Providers Care Commercial Litigation Attorney Name Role Phone Linda Carmichael MD Primary Care Provider + Reason for Visit * Reason Onset Date Comments Med Refill 10/01/2023 Encounter Details Date Type Department Care Team (Late st Contact Info) Description 10/01/2023 Telephone [facility] [address], [place] [phone] Linda Carmichael MD [address] [place], [place] [phone] Med Refill Social History Tobacco Use Types Packs/Day Years Used Date Smoking Tobacco: Every Day Cigarettes Passive Smoke Exposure: Current Smokeless Tobacco: Never Alcohol Use Standard Drinks/Week Comments Never 0 (1 standard drink = 0.6 oz pur e alcohol) Housing Stability Answer Date Recorded What is [...] Answer Date Recorded Patient Health Questionnaire-2 Score 0 07/09/2023 Comments No Sex and Gender Information Value Date Recorded Sex Assigned at Female 05/27/2022 10:34 AM EDT Legal Sex Female 10:34 AM EDT Gender Identity Female 05/27/2022 10:34 AM EDT Sexual Orientation Straight 05/27/2022 10 :34 AM EDT documented as of this encounter Miscellaneous Notes * Telephone Encounter - Nikky Bran LPN - 10/01/2023 8:22 AM EST Medication was sent to [id number] on 07/09/23 #60 with 2 refills. * Telephone Encounter - Ney Moody - 10/01/2023 8:12 AM EST TC from pt requesting medication refill. Medications needing refill : mirtazapine (Remeron) 15 MG tablet To be sent to: [id number] - [place], [place] - [address] AT [employer] [facility] documented in this encounter Plan of Treatment Not on file documented as of this encounter Visit Diagnoses Not on filedocumented in this encounter Care Teams Commercial Litigation Attorney Relationship Specialty Start Date End Date Linda Carmichael MD [address] [place] [address] PCP - General Family Medicine 07/07/18 documented as of this encounter
== END 2025-05-25 09:08 | disposition home or self-care (01) ==
LOC: HO.HHCLNP 09:07
PROVIDERS: Visit Provider Advanced Practice Midwife
DX: Z12.4 Encounter for screening for malignant neoplasm of cervix (principal); Z11.51 Encounter for screening for human papillomavirus (HPV)
CPT/HCPCS: 87626; 88175